=== PATIENT | male | born 1930 | race Caucasian/White ===

== ENCOUNTER 2018-07-06 13:15 | Emergency (ER) | payer MEDICARE, BC ==
[2018-07-06] MEDS ORDERED: Sodium Chloride 0.9% 10 ML Syringe FLUSH PRN (13:30)
[2018-07-06] MEDS ORDERED: Sodium Chloride 0.9% 2.5 ML Syringe FLUSH PRN (13:30)
--- NOTE | 2018-07-06 13:42 | EDM.PDOC ---
ED HPI GENERAL MEDICAL PROBLEM - General Chief Complaint: Skin Complaint Stated Complaint: RASH ON BOTH LEGS Time Seen by Provider: 07/06/18 13:16 Source of Information: Reports: Patient, Family History Limitations: Reports: No Limitations - History of Present Illness INITIAL COMMENTS - FREE TEXT/NARRATIVE: HISTORY AND PHYSICAL: History of present illness: Patient is an 88-year-old male who presents to the emergency room today with complaints of a rash to his bilateral lower extremities 4 years. The daughter who is at bedside states that the patient is "arnpeter" and has not seen a provider in approximately 10 years. He has no formal diagnoses and only takes medications for ophthalmic health and an aspirin 81 mg prophylactic daily. Patient states that he has a pruritic rash to bilateral lower extremities which she does apply Neosporin onto 1-2 times daily to help alleviate the discomfort. He denies any fever, chills, chest pain, shortness of breath or cough. Denies any abdominal pain, nausea, vomiting, diarrhea, constipation or dysuria. He has been eating and drinking appropriately. Review of systems: As per history of present illness and below otherwise all systems reviewed and negative. Past medical history: As per history of present illness and as reviewed below otherwise noncontributory. Surgical history: As per history of present illness and as reviewed below otherwise noncontributory. Social history: See social history for further information Family history: As per history of present illness and as reviewed below otherwise noncontributory. Physical exam: General: Well-developed and well-nourished 88-year-old male. Alert and oriented. Nontoxic appearing and in no acute distress. HEENT: Atraumatic, normocephalic, pupils equal and reactive bilaterally, wears glasses (poor vision), negative for conjunctival pallor or scleral icterus, mucous membranes moist, TMs normal bilaterally, throat clear, neck supple, nontender, trachea midline. No drooling or trismus noted. No meningeal signs. No hot potato voice noted. Lungs: Clear to auscultation, breath sounds equal bilaterally, chest nontender. Heart: Regular rate and rhythm, occasional PVC, without overt murmur Abdomen: Soft, nondistended, nontender. Negative for masses or hepatosplenomegaly. Negative for costovertebral tenderness. Pelvis: Stable nontender. Genitourinary: Deferred. Rectal: Deferred. Skin: Patient has small circular lesions to bilateral lower extremities which appear irritated, as the patient states he does scratch at them frequently. There does appear to be a few smaller lesions above the kneecap and to inner thighs bilaterally. These lesions are pinkish in color and do not appear to have any fluid or drainage from them. Intact, warm, dry. Extremities: Atraumatic, moves all extremities per self without difficulty or deficits. negative for cords or calf pain. Neurovascular unremarkable. Neuro: Awake, alert, oriented. Cranial nerves II through XII unremarkable. Cerebellum unremarkable. Motor and sensory unremarkable throughout. Exam nonfocal. Notes: Lab work is unremarkable. EKG shows a normal sinus rhythm with a rate of 80's. Chest x-ray shows no acute findings. Patient is unable to void at this time, he would like to decline this test. We discussed the need for follow-up with the primary care provider. His daughter who is at the bedside states that she will help him establish care and have appropriate follow-up. Although the lower extremity lesions do not appear cellulitic or infected we will try a course of Keflex and topical hydrocortisone cream. Education to both patient and daughter were done on this. Supportive care measures were reviewed and discussed. Voices understanding and is agreeable to plan of care. Denies any further questions or concerns at this time. Diagnostics: CBC, CMP, UA, HemA1C, EKG, Chest Xray Therapeutics: Saline Lock Prescription: Keflex and Hydrocortisone Cream Impression: Atopic dermatitis Plan: 1. Please use a thick emollient cream such as Goldbond lotion or Aquafor 2-3 times daily to act as a barrier. Use the hydrocortisone cream twice daily as needed for itching. 2. He may also use Benadryl or Zantac to help with the itching. He may take this as directed. 3. Please establish care with a primary care provider as you should have routine checkup, as we discussed. Return to the ED as needed and as discussed. Definitive disposition and diagnosis as appropriate pending reevaluation and review of above. - Related Data Allergies Allergy/AdvReac Type Severity Reaction Status Date / Time No Known Allergies Allergy Verified 07/06/18 13:21 Home Meds: Home Meds Hydrocortisone [Hydrocortisone 1% Crm] 1 dose TOP BID PRN #1 tube 07/06/18 [Rx] cephALEXin [Keflex] 500 mg PO TID 10 Days #30 cap 07/06/18 [Rx] Past Medical History HEENT History: Reports: Cataract, Macular Degeneration Cardiovascular History: Reports: None Respiratory History: Reports: None Gastrointestinal History: Reports: None Genitourinary History: Reports: None Musculoskeletal History: Reports: None Neurological History: Reports: None Psychiatric History: Reports: None Endocrine/Metabolic History: Reports: None Hematologic History: Reports: None Immunologic History: Reports: None Oncologic (Cancer) History: Reports: None Dermatologic History: Reports: None - Infectious Disease History Infectious Disease History: Reports: Chicken Pox, Shingles - Past Surgical History Head Surgeries/Procedures: Reports: None HEENT Surgical History: Reports: None Cardiovascular Surgical History: Reports: None Respiratory Surgical History: Reports: None GI Surgical History: Reports: None Male Surgical History: Reports: None Endocrine Surgical History: Reports: None Neurological Surgical History: Reports: None Musculoskeletal Surgical History: Reports: None Oncologic Surgical History: Reports: None Dermatological Surgical History: Reports: None Social & Family History - Family History Family Medical History: Noncontributory - Tobacco Use Smoking Status *Q: Former Smoker Used Tobacco, but Quit: Yes Month/Year Tobacco Last Used: 17 years - Caffeine Use Caffeine Use: Reports: Coffee, Soda - Recreational Drug Use Recreational Drug Use: No ED ROS GENERAL - Review of Systems Review Of Systems: ROS reveals no pertinent complaints other than HPI. ED EXAM, SKIN/RASH Exam: See Below (See dictation) Course - Vital Signs Last Recorded V/S: Last Vital Signs Temp 97.2 F 07/06/18 13:22 Pulse 78 07/06/18 15:15 Resp 18 07/06/18 15:15 BP 170/81 H 07/06/18 15:15 Pulse Ox 98 07/06/18 15:15 - Orders/Labs/Meds Orders: Active Orders 24 hr Category Date Time Status EKG Documentation Completion [RC] STAT Care 07/06/18 13:30 Active Saline Lock Insert [OM.PC] Stat Oth 07/06/18 13:30 Ordered Labs: Laboratory Tests 07/06/18 07/06/18 07/06/18 Range/Units 13:45 13:45 13:45 WBC 9.15 (4.0-11.0) K/uL RBC 5.16 (4.50-5.90) M/uL Hgb 15.9 (13.0-17.0) g/dL Hct 46.7 (38.0-50.0) % MCV 90.5 (80.0-98.0) fL MCH 30.8 (27.0-32.0) pg MCHC 34.0 (31.0-37.0) g/dL RDW Std Deviation 42.3 (28.0-62.0) fl RDW Coeff of Leighton 13 (11.0-15.0) % Plt Count 217 (150-400) K/uL MPV 9.50 (7.40-12.00) fL Neut % (Auto) 59.6 (48.0-80.0) % Lymph % (Auto) 26.2 (16.0-40.0) % Gaston % (Auto) 8.5 (0.0-15.0) % Eos % (Auto) 5.0 (0.0-7.0) % Baso % (Auto) 0.7 (0.0-1.5) % Neut # (Auto) 5.5 (1.4-5.7) K/uL Lymph # (Auto) 2.4 (0.6-2.4) K/uL Gaston # (Auto) 0.8 (0.0-0.8) K/uL Eos # (Auto) 0.5 (0.0-0.7) K/uL Baso # (Auto) 0.1 (0.0-0.1) K/uL Nucleated RBC % 0.0 /100WBC Nucleated RBCs # 0 K/uL Sodium 138 (136-148) mmol/L Potassium 3.8 (3.5-5.1) mmol/L Chloride 104 (98-107) mmol/L Carbon Dioxide 25.5 (21.0-32.0) mmol/L BUN 15 (7.0-18.0) mg/dL Creatinine 1.2 (0.8-1.3) mg/dL Est Cr Clr Drug Dosing 33.49 mL/min Estimated GFR (MDRD) 57.3 ml/min Glucose 93 (74-106) mg/dL Hemoglobin A1c 5.7 (4.5-6.2) % Calcium 8.2 L (8.5-10.1) mg/dL Total Bilirubin 0.3 (0.2-1.0) mg/dL AST 15 (15-37) IU/L ALT 29 (14-63) IU/L Alkaline Phosphatase 65 (46-116) U/L Total Protein 7.1 (6.4-8.2) g/dL Albumin 3.5 (3.4-5.0) g/dL Globulin 3.6 (2.6-4.0) g/dL Albumin/Globulin Ratio 1.0 (0.9-1.6) Meds: Medications Discontinued Medications Generic Name Dose Route Start Last Admin Trade Name Freq PRN Reason Stop Dose Admin Sodium Chloride 10 ml 07/06/18 13:30 07/06/18 14:17 Saline Flush FLUSH 10 ml ASDIRECTED PRN Administration Keep Vein Open Sodium Chloride 2.5 ml 07/06/18 13:30 07/06/18 14:17 Saline Flush FLUSH 2.5 ml ASDIRECTED PRN Administration Keep Vein Open Departure - Departure Time of Disposition: 14:59 Disposition: Home, Self-Care 01 Clinical Impression: Atopic dermatitis Qualifiers: Atopic dermatitis type: unspecified Qualified Code(s): L20.9 - Atopic dermatitis, unspecified - Discharge Information Prescriptions: cephALEXin [Keflex] 500 mg PO TID 10 Days #30 cap Hydrocortisone [Hydrocortisone 1% Crm] 1 dose TOP BID PRN #1 tube PRN Reason: Itching Instructions: Atopic Dermatitis Referrals: PCP,Unknown [Primary Care Provider] - Forms: ED Department Discharge Additional Instructions: The following information is given to patients seen in the emergency department who are being discharged to home. This information is to outline your options for follow-up care. We provide all patients seen in our emergency department with a follow-up referral. The need for follow-up, as well as the timing and circumstances, are variable depending upon the specifics of your emergency department visit. If you don't have a primary care physician on staff, we will provide you with a referral. We always advise you to contact your personal physician following an emergency department visit to inform them of the circumstance of the visit and for follow-up with them and/or the need for any referrals to a consulting specialist. The emergency department will also refer you to a specialist when appropriate. This referral assures that you have the opportunity for follow-up care with a specialist. All of these measure are taken in an effort to provide you with optimal care, which includes your follow-up. Under all circumstances we always encourage you to contact your private physician who remains a resource for coordinating your care. When calling for follow-up care, please make the office aware that this follow-up is from your recent emergency room visit. If for any reason you are refused follow-up, please contact the [facility] Emergency Department at and asked to speak to the emergency department charge nurse. [facility] [address] [place] [id number] [facility] [address] [place] [id number] 1. Please use a thick emollient cream such as Goldbond lotion or Aquafor 2-3 times daily to act as a barrier. Use the hydrocortisone cream twice daily as needed for itching. 2. He may also use Benadryl or Zantac to help with the itching. He may take this as directed. 3. Please establish care with a primary care provider as you should have routine checkup, as we discussed. Return to the ED as needed and as discussed. - My Orders Last 24 Hours: My Active Orders 07/06/18 13:30 EKG Documentation Completion [RC] STAT Saline Lock Insert [OM.PC] Stat - Assessment/Plan Last 24 Hours: My Active Orders 07/06/18 13:30 EKG Documentation Completion [RC] STAT Saline Lock Insert [OM.PC] Stat
[2018-07-06 14:38] LABS: HEMOGLOBIN A1C 5.7 % (4.5-6.2)
--- NOTE | 2018-07-06 14:41 | CR ---
EXAMINATION: Two-view chest (PA and Lateral views). HISTORY: Atrial fibrillation. FINDINGS: The trachea is midline. The cardiomediastinal silhouette is within normal limits. No pulmonary infiltrates, effusions or pneumothorax. Mild aortic calcifications. Mild bibasilar atelectasis. Osseous structures appear unremarkable. IMPRESSION: No acute cardiopulmonary process.
== END 2018-07-06 15:15 | disposition home or self-care (01) ==
LOC: MW.ED 13:15
DX: L20.9 Atopic dermatitis, unspecified (principal); Z87.891 Personal history of nicotine dependence
CPT/HCPCS: 36415; 71046; 71046-26; 80053; 83036; 85025; 93005; 99283-25; 99284